=== PATIENT | female | born 1995 | race Caucasian/White ===

== ENCOUNTER 2021-01-11 21:18 | Emergency (ER) | payer OTHER ==
[~2021-01-11] VITALS: Ht 157.5 cm; Wt 47.6 kg
[2021-01-11 22:10] VITALS: BP 135/92
== END 2021-01-11 22:29 | disposition home or self-care (01) ==
LOC: ER 21:26
DX: Z71.1 Person with feared health complaint in whom no diagnosis is made (principal); Z98.890 Other specified postprocedural states